=== PATIENT | female | born 1950 | race Two or more races ===

== ENCOUNTER 2019-02-17 05:30 | Day surgery (SDC) | payer OTHER ==
[~2019-02-17 05:30] MED LIST: CARAFATE1 GM PO; CLONAZEPAM1 MG PO; CYMBALTA60 MG PO; HUMALOG MI100 UNIT/2; KEFLEX500 MG PO; LANTUS SOL100 UNIT/1; PROTONIX40 MG PO; REGLAN5 MG/5 ML PO; ULTRACET PO
[2019-02-17] MEDS ORDERED: ULTRACET PO (08:49)
== END 2019-02-17 10:40 | disposition home or self-care (01) ==
LOC: CIR.AMB 05:30
DX: R15.9 Full incontinence of feces (principal)
CPT/HCPCS: 64590; C1767

== ENCOUNTER 2020-12-27 09:30 | Inpatient (IN) | payer OTHER ==
[~2020-12-27] VITALS: Ht 154.9 cm; Wt 67.1 kg
[2020-12-27] MEDS ORDERED: [UNRECOGNIZED DRUG - OTHER] PO (10:48)
[2020-12-27] MEDS ORDERED: LANTUS (10:48)
[2020-12-27] MEDS ORDERED: PROTONIX40 MG PO (12:35)
[2020-12-27] MEDS ORDERED: JARDIANCE10 MG PO (12:35)
[2020-12-27] MEDS ORDERED: PEPCID AC10 MG PO (12:35)
[2021-01-15] MEDS ORDERED: ALLEGRA ALLERGY60 MG (08:54)
[2021-01-15] MEDS ORDERED: ESTAZOLAM2 MG (08:55)
[2021-01-15] MEDS ORDERED: CLOTRIMAZOLE-BE15 G1 (08:55)
[2021-01-15] MEDS ORDERED: TRIAMCINOLONE A15 G1 (08:55)
[2021-01-15] MEDS ORDERED: LANTUS SOL100 UNIT/1 (08:55)
[2021-01-15] MEDS ORDERED: DULOXETINE HCL60 MG (08:55)
[2021-01-15] MEDS ORDERED: ATORVASTATIN CA10 MG (08:56)
[2021-01-15] MEDS ORDERED: MELOXICAM15 MG (08:56)
[2021-01-15] MEDS ORDERED: SYNJARDY 12.5-1 EACH (08:56)
[2021-01-15] MEDS ORDERED: MAXIMUM D3325 MCG (08:56)
[2021-01-15] MEDS ORDERED: BACLOFEN10 MG (08:56)
[2021-01-15] MEDS ORDERED: MEMANTINE HCL ER7 MG (08:56)
[2021-01-15] MEDS ORDERED: FAMOTIDINE20 MG (08:56)
[2021-01-15] MEDS ORDERED: LATANOPROST2.5 ML (08:57)
[2021-01-15] MEDS ORDERED: IRBESARTAN75 MG (08:57)
[2021-01-15] MEDS ORDERED: CHOLESTYRAMINE P4 GM (08:57)
[2021-01-15] MEDS ORDERED: NABUMETONE750 MG (08:57)
[2021-01-15] MEDS ORDERED: FLONASE16 GM (08:58)
[2021-01-15] MEDS ORDERED: COMBIGAN EYE DRO5 ML (08:58)
[2021-01-15] MEDS ORDERED: CELECOXIB200 MG (08:58)
[2021-01-16] MEDS ORDERED: NEURONTIN300 MG PO (09:23)
[2021-01-16] MEDS ORDERED: INTESTINEX680 M1 PO (09:24)
[2021-01-16] MEDS ORDERED: PERCOCET 5-3251 EACH PO (09:24)
== END 2021-01-16 13:17 | disposition home or self-care (01) | DRG 761 ==
LOC: SURH 01-03 09:30 → O/R 01-15 05:37 → SURH 01-15 11:25
PROVIDERS: ADMIT Surgery; ATTEND Surgery
PROC: 3E0T3BZ Introduction of Anesthetic Agent into Peripheral Nerves and Plexi, Percutaneous Approach (ICD-10-PCS; 2021-01-15)
PROC: 3E0F7SF Introduction of Other Gas into Respiratory Tract, Via Natural or Artificial Opening (ICD-10-PCS; 2021-01-15)
PROC: 0JQC3ZZ Repair Pelvic Region Subcutaneous Tissue and Fascia, Percutaneous Approach (ICD-10-PCS; principal; 2021-01-15 07:00)
DX: N81.6 Rectocele (principal); K59.09 Other constipation; Z20.822 Contact with and (suspected) exposure to COVID-19

== ENCOUNTER 2024-11-24 08:00 | Day surgery (SDC) | payer OTHER ==
[2024-11-17 10:18] VITALS: BP 136/75
[2024-11-17 10:27] LABS: BASO % 0.5 % (0.1-1.2); EOS # 0.16 (0.04-0.54); EOS % 2.0 % (0.7-7.0); LYMPH # 2.50 (1.18-3.74); LYMPH % 32.0 % (19.3-53.1); MEAN PLATELET VOLUME 10.00 fl (9.4-12.4); MONO # 0.61 (0.24-0.82); MONO % 7.8 % (4.7-12.5); NEUT # 4.49 (1.56-6.13); NEUT % 57.4 % (34.0-71.1); RED CELL DISTRIBUTION WIDTH 12.2 % (11.6-14.4)
[2024-11-17 10:30] LABS: URINE APPEARANCE Clear; URINE BILIRRUBIN Negative (NEGATIVE); URINE BLOOD Negative; URINE COLOR Yellow; URINE KETONE Trace (NEGATIVE); URINE LEUKOCYTE Small; URINE NITRATE Negative; URINE PROTEIN Negative (NEGATIVE); URINE UROBILINOGEN 0.2 E.U./dl
[2024-11-17 10:32] LABS: URINE BACTERIA 319.1 uL (0.0-1933); URINE EPITHELIAL CELLS 47.8 uL (0.0-38.8); URINE RBC 8.9 uL (0.0-20.8); URINE WBC 42.9 uL (0.0-23.2)
[2024-11-17 10:49] LABS: INR 0.99
[2024-11-17 11:10] LABS: URINE CAST 0.00 uL (0.0-1.40); URINE GLUCOSE >=1000 MG/DL (NEGATIVE)
[2024-11-17 12:04] LABS: ALT/SGPT 34.0 U/L (12-78); AST/SGOT 24.0 U/L (15-37); BILIRUBIN TOTAL 0.45 mg/dL (0.3-1.2); BUN CREA RATIO 25.0 (7.0-25.0); CREATININE SERUM 0.59 mg/dL (0.55-1.02); GFR 99.91; GLOBULINA 3.4 G/DL (2.4-3.5); GLUCOSE FASTING 111.0 mg/dL (65-100); OSMOLALITY SERUM 286.0 MOSM/KG (275-295)
[~2024-11-24] VITALS: Ht 157.5 cm; Wt 68.9 kg
[~2024-11-24 08:00] MED LIST changes: +ALLEGRA ALLERGY60 MG; +ATORVASTATIN CA10 MG; +BACLOFEN10 MG; +CELECOXIB200 MG; +CHOLESTYRAMINE P4 GM; +CLOTRIMAZOLE-BE15 G1; +COMBIGAN EYE DRO5 ML; +DULOXETINE HCL60 MG; +ESTAZOLAM2 MG; +FAMOTIDINE20 MG; +FLONASE16 GM; +INTESTINEX680 M1 PO; +IRBESARTAN75 MG; +JARDIANCE10 MG PO; +LANTUS; +LATANOPROST2.5 ML; +MAXIMUM D3325 MCG; +MELOXICAM15 MG; +MEMANTINE HCL ER7 MG; +NABUMETONE750 MG; +NEURONTIN300 MG PO; +PEPCID AC10 MG PO; +PERCOCET 5-3251 EACH PO; +SYNJARDY 12.5-1 EACH; +TRIAMCINOLONE A15 G1; +[UNRECOGNIZED DRUG - OTHER] PO
[2024-11-24] MEDS ORDERED: INTESTINEX680 M1 PO (13:08)
[2024-11-24] MEDS ORDERED: TRAM1TAB98 PO (13:08)
== END 2024-11-24 17:20 | disposition home or self-care (01) ==
LOC: CIR.AMB 08:00
PROVIDERS: ATTEND Surgery
DX: R15.9 Full incontinence of feces (principal); R39.15 Urgency of urination; T85.111A Breakdown (mechanical) of implanted electronic neurostimulator of peripheral nerve electrode (lead), initial encounter; K59.09 Other constipation
CPT/HCPCS: 64581; 64590; 95972; C1767; C1778